=== PATIENT | female | born 1980 | race Caucasian/White ===

== ENCOUNTER → 2023-09-10 | Outpatient (CLI) | payer MEDICAID, OTHER ==
--- NOTE | 2023-09-11 13:40 | MM ---
Reason for Exam: Screening (asymptomatic). Baseline mammogram. Patient History: Menarche at age 14. First Full-Term at age 26. 2007, Bilateral Implants. Last menstrual period: 09/05/2023 Risk Values: Jocelynn 5 year model risk: 0.7%. NCI Lifetime model risk: 11.0%. Prior Study Comparison: Patient's first Mammogram. Tissue Density: The breasts are heterogeneously dense, which may obscure small masses. Findings: Analyzed By CAD. There is no suspicious group of microcalcifications or new suspicious mass in either breast. Overall Assessment: Benign, BI-RAD 2 Management: Screening Mammogram of both breasts in 1 year. . Patient should continue monthly self-breast exams. A clinical breast exam by your physician is recommended on an annual basis. This exam should not preclude additional follow-up of suspicious palpable abnormalities. Note on Jocelynn scores and lifetime risk: 1. A Jocelynn score greater than 3% is considered moderate risk. If this is the case, consider specialist referral to assess eligibility for a risk reducing agent. 2. If overall lifetime risk for the development of breast cancer is 20% or higher, the patient may qualify for future screening with alternating mammogram and breast MRI. Electronically signed and approved by: John Bobby M.D. Radiologis
== END | disposition home or self-care (01) ==
LOC: RADMAMWWP 10:38
PROVIDERS: ATTEND Family Medicine
DX: Z12.31 Encounter for screening mammogram for malignant neoplasm of breast (principal); R92.333 Mammographic heterogeneous density, bilateral breasts
CPT/HCPCS: 77063; 77067

== ENCOUNTER → 2023-11-08 | Outpatient (CLI) | payer OTHER ==
--- NOTE | 2023-11-10 11:30 | US ---
EXAMINATION TYPE: US axilla LT DATE OF EXAM: 11/08/2023 COMPARISON: NONE CLINICAL INDICATION: Female, 43 years old with history of R22.32 MASS AND LUMP, LEFT UPPER LIMB; palp able area seen upper axilla toward proximal arm for years TECHNIQUE: Soft tissue scan of left axilla FINDINGS: Normal appearing soft tissue, no obvious abnormality noted. IMPRESSION: No discrete abnormality appreciated. [facility], , 11/10/2023 11:28 AM
== END | disposition home or self-care (01) ==
LOC: RADUSWWP 11:12
PROVIDERS: ATTEND Family Medicine
DX: R22.32 Localized swelling, mass and lump, left upper limb (principal)